=== PATIENT | male | born 1955 | race Caucasian/White ===

== ENCOUNTER → 2016-11-10 | Outpatient (CLI) | payer BC ==
[~2016-11-10] MED LIST: ASPI81TA28 PO; CRS/10 PO; HYDR-5688 PO; HYDR12.55 PO; LOSA1TAB PO; POTA1CAP53 PO; TAMS0.4C38 PO; VERA240C2 PO
--- NOTE | 2016-11-10 11:35 | DIAGNOSTIC IMAGING REPORT ---
SINUS CT CT DOSE: 635.90 mGy.cm HISTORY: Pain sinusitis TECHNIQUE: Multiaxial CT images of the paranasal sinuses were performed and reformatted in the coronal plane without the use of contrast. COMPARISON: None. FINDINGS: Diffuse mucosal thickening of all major sinuses. Near complete opacification right frontal air cells. Considerable mucosal thickening left frontal air cells. Complete opacification ethmoid air cells. Rather significant mucosal thickening of the maxillary sinuses bilaterally. The estimated units are soft tissue occluded bilaterally. There are moderate hypertrophic change of the nasal turbinates. Considerable mucosal thickening of the sphenoid air cells. The mastoid air cells are clear. The orbits are unremarkable. IMPRESSION: 1. Diffuse mucosal thickening throughout all major sinuses with near complete opacifications at multiple sites. 2. Soft tissue occlusion of the ostiomeatal units 3. Polypoid and/or hypertrophic change of the nasal turbinates. Electronically signed by: Lavelle Cunningham M.D. 11/10/2016 11:34 AM Dictated Date/Time: 11/10/2016 11:31 AM
== END | disposition home or self-care (01) ==
LOC: C.CTS 11:18
PROVIDERS: ATTEND Otolaryngology
DX: J32.9 Chronic sinusitis, unspecified (principal); M79.9 Soft tissue disorder, unspecified; J34.9 Unspecified disorder of nose and nasal sinuses

== ENCOUNTER → 2016-11-17 | Day surgery (SDC) | payer BC ==
[2016-11-11 08:11] VITALS: Ht 172.7 cm; Wt 93.2 kg
--- NOTE | 2016-11-15 09:36 | History and Physical: Surg Cnt ---
History & Physical Date Nov 15, 2016. Chief Complaint sinus infection History of Present Illness The patient is a 61 year old male with complaints of persistent sinusitis after 5 courses of antibiotics and steroids, x 6 months Additional History Hepatic Disease: No Endocrine Disorder: No Kidney Disease: No Hypertension: No Heart Disease: No Bleeding Tendencies: No Infectious Diseases: No Allergies Coded Allergies: No Known Allergies (Unverified , 11/11/16) Home Medications Scheduled Aspirin (Aspirin Ec), 81 MG PO QPM Hydrochlorothiazide (Hydrochlorothiazide), 1 TAB PO QPM Losartan Potassium (Cozaar), 25 MG PO QPM Potassium Chloride (Klor-Con Sprinkle), 1 TAB PO QPM Rosuvastatin Calcium (Crestor), 10 MG PO QPM Tamsulosin Hcl (Flomax), 0.4 MG PO QPM Verapamil Hcl (Verapamil Hcl Er), 1 CAP PO QAM Physical Examination Skin: warm/dry, no rash Eyes: normal inspection, EOMI, sclerae normal ENT: normal ENT inspection, pharynx normal Head: normocephalic, atraumatic Neck: supple, no adenopathy, trachea midline Respiratory/Chest: lungs clear, normal breath sounds, no respiratory distress Cardiovascular: regular rate, rhythm, no edema, no murmur Abdomen / GI: normal bowel sounds, non tender Back: normal inspection Extremities: normal inspection, normal range of motion Neurologic/Psych: no motor/sensory deficits, alert, normal reflexes, oriented x 3 Diagnosis chronic sinusitis, septal deviation Plan of Treatment septoplasty and endoscopic sinus surgery, explained procedure and risks
[~2016-11-17] VITALS: Ht 172.7 cm; Wt 93.2 kg
[~2016-11-17] MED LIST changes: +ATROPINE SULFATE 0.1 MG/ML 5ML SYR IV PRN; +CEFAZOLIN 2000 MG/60 ML D5W IV SCH; +DEXAMETHASONE SOD INJ 4 MG/ML VIAL ONE; +EpHEDrine SULFATE 50MG/5ML SYR ONE; +EpHEDrine SULFATE INJ 50 MG/ML AMP IV PRN; +EpINEphrine INJ 1MG/ML AMP 1 MG/ML AMP ONE; +FENTANYL CITRATE INJ 50 MCG/1 ML 2 ML VIAL ONE; +FLUMAZENIL 0.1 MG/1 ML 10 ML VIAL IV PRN; +GELATIN SPONGE 12-7MM ONE; +HYDROCODONE/ACETAMOPHEN 5/325MG TAB PO PRN; +LABETALOL HCL IV 5 MG/ML 20ML IV PRN; +LACTATED RINGER'S 1000ML 1,000 ML IV SCH; +LIDO 2%/EPINEPHRINE 1:100000 20 ML VIAL INFIL ONE; +LIDOCAINE 4% MPF SOAK 5 ML = 1 DOSE TOP ONE; +LIDOCAINE HCL 2% 2 ML VIAL (20MG/ML) ONE; +MIDAZOLAM HCL 1 MG/ML 2ML VIAL ONE; +NALOXONE HCL 0.4 MG/1 ML VIAL/CARP IV PRN; +NURSING VERBAL MED ORDER ONE; +ONDANSETRON INJ 2 MG/ML 2 ML VIAL IV PRN; +ONDANSETRON INJ 2 MG/ML 2 ML VIAL ONE; +OXYCODONE/ACETAMINOPHEN 5-325 TAB PO PRN; +PROMETHAZINE HCL INJ 12.5 MG in SODIUM CHLORIDE 0.9% 50ML 50 ML IV PRN; +PROPOFOL IV EMULSION 10 MG/ML 20 ML VIAL IV ONE; +SODIUM CHLORIDE 0.9% 1000ML 1,000 ML IV SCH; +SUCCINYLCHOLINE CHLORIDE 20 MG/ML 10 ML VIAL IV ONE
--- NOTE | 2016-11-17 11:08 | History & Physical Bridge Note ---
H&P Re-Evaluation Bridge Note: I have examined the patient, reviewed the History & Physical and in the interval since the performance of the History & Physical I have noted the following changes of clinical significance: No changes noted
--- NOTE | 2016-11-17 11:29 | History & Physical Bridge Note ---
H&P Re-Evaluation Bridge Note: I have examined the patient, reviewed the History & Physical and in the interval since the performance of the History & Physical I have noted the following changes of clinical significance: I will clean wax from right ear
[2016-11-17] MEDS: BACITRACIN OINT 15 GM TUBE ONE ×3 (12:13→13:25)
--- NOTE | 2016-11-17 14:01 | [facility] Operative Report ---
Operative Report Operative Date Nov 17, 2016. Pre-Operative Diagnosis Chronic Sinusitis, Septal Deviation, Cerumen of right ear Post-Operative Diagnosis same as preop Procedure(s) Performed Right and left frontal sinusotomy right and left sphenoidotomy right and left total ethmoidectomy right and left maxillary sinus antrostomy with removal of multiple polyps Surgeon Dr. Vences [employer] Sales Representative Surgeon(s) none Estimated Blood Loss 150ML Findings Severe polyposis Specimens A: Polyp right sphenoid Drains none Anesthesia Gen. endotracheal Complication(s) None Disposition Recovery Room / PACU Implants Propel implants, 2 contour and 2 regular Indications 61-year-old male with long history of of chronic sinusitis and significant nasal polyposis with pansinusitis on CT scan Description of Procedure Procedure the patient was brought to the operating room placed in the supine position general endotracheal anesthesia was induced he was prepped and draped in the usual sterile manner for endoscopic sinus surgery. The brain lab device was calibrated and used for the entire procedure. The right sphenoid was cannulated with the guidewire with HiperScan computer guidance and dilated to used and 6 mm balloon as well as the left sphenoid sinus. The right maxillary sinus was cannulated with the guidewire and dilated using the 6 mm balloon as well as the left maxillary sinus. The left nasal frontal duct was cannulated with a guidewire with AcunuLab computer guidance and dilated using the 6 mm balloon the guidewire was left in place as a marker. Frontal sinusotomy was performed using the shaver couple with the brain lab device shaving up the Agger nasi cell removing the anterior wall and the posterior wall and agonizing ECL finding the cell to be filled with polyps. The nasal frontal duct was started opened by following the guidewire superiorly removing the posterior wall of the AggerNasi cell which is the anterior wall of the nasal frontal duct. The mucosa in the nasal frontal duct was left intact. At this point total ethmoidectomy was performed opening up the bulla ethmoidalis then going through the ground lamella into the posterior ethmoid air cell. The posterior most ethmoid air cell was identified with the shaver couple with the brain lab device. The skull base and lamina papyracea were identified and followed anteriorly exonerating all the posterior and then all the anterior ethmoid air cells up to the previously dilated nasal frontal duct which still had the guidewire in place. The sphenoidotomy was opened by removing polypoid mucosa at the inferior border of the superior turbinate and also at the anterior face of the sphenoid. The maxillary antrostomy was opened using the seeker to find the dilated opening and then removing polypoid tissue from around the maxillary sinus ostia using the shaver opening this to a natural maxillary ostia. The right frontal sinusotomy sphenoidotomy total ethmoidectomy and maxillary sinus antrostomy was performed in a similar manner again removing polyposis that filled all the sinuses. Contours stents were placed in the nasal frontal duct and regular propel stents were placed in the ethmoid cavity. The patient tolerated. The procedure well was taken to the recovery area in satisfactory condition I attest to the content of the Intraoperative Record and any orders documented therein. Any exceptions are noted below.
[2016-11-17] MEDS: FENTANYL CITRATE INJ 50 MCG/1 ML 2 ML VIAL IV PRN ×4 (14:02→14:26)
[2016-11-17 14:40] VITALS: TEMP 36.6
--- NOTE | 2016-11-17 15:30 | Discharge Instructions-SurgCtr ---
Discharge Instructions Date of Service Nov 17, 2016. Visit Reason for Visit: Chronic Sinusitis, Septal Deviation Discharge Discharge Diagnosis / Problem: SHAHEEN Discharge Goals Goal(s): Improve function, Improve disease control Activity Recommendations Activity Limitations: resume your previous activity Anesthesia . Post Anesthesia Instructions: If you have had General Anesthesia or IV Sedation: * Do not drive today. * Resume driving when surgeon permits. * Do not make important decisions or sign legal documents today. * Call surgeon for: 1. Temperature elevations greater than 101 degrees F. 2. Uncontrollable pain. 3. Excessive bleeding. 4. Persistent nausea and vomiting. 5. Medication intolerance (nausea, vomiting or rash). * For nausea and vomiting use only clear liquids such as: tea, soda, bouillon until nausea subsides, then gradually increase diet as tolerated. * If you have any concerns or questions, call your surgeon's office. If physician is unavailable and it is an emergency, call 911 or go to the nearest emergency room. . Instructions / Follow-Up Instructions / Follow-Up ACTIVITY RECOMMENDATIONS: * Being up and around is good, but no strenuous activity, heavy lifting or physical exertion for one week. * Keep your head elevated 30 degrees when lying down or sleeping. * Do not blow your nose for 48 hours, sniff back instead. * Avoid hot showers. OVER THE COUNTER MEDICATIONS: * You may use Tylenol * Avoid aspirin or aspirin containing products, e.g. as they may increase bleeding. SPECIAL CARE INSTRUCTIONS: * Expect to have bloody drainage from your nose and/or down your throat for one to three days. Change drip pad as needed. * Begin irrigating your nose with saline solution today, at least six to ten times per day and sniff back to help remove old clots or crust. * You may experience nasal and facial congestion, pain and pressure, this is normal. * Please call with any significant and/or progressive pain, redness, swelling around the eyes, visual changes, fever of 101.5 degrees F, active bleeding or any problems or concerns. * If active bleeding occurs, spray the nose three times at one minute intervals with Afrin spray and call or cell phone: . If unable to reach the doctor, go to the nearest Emergency Department. Special Diet: * Avoid extremely hot fluids. FOLLOW UP VISIT: Follow-up Visit with Dr. Vences If not already scheduled, please call to schedule. Diet Recommendations Home Diet: no limitations Procedures Procedures Performed: Right and left frontal sinusotomy right and left sphenoidotomy right and left total ethmoidectomy right and left maxillary sinus antrostomy with removal of multiple polyps Pending Studies Studies pending at discharge: no Medical Emergencies . Who to Call and When: Medical Emergencies: If at any time you feel your situation is an emergency, please call 911 immediately. . Non-Emergent Contact Non-Emergency issues call your: Primary Care Provider . . "Provider Documentation" section prepared by Daniella Vences. . [place] Drug Monitoring Program Search Results: no issues identified
[2016-11-17 15:31] VITALS: BP 144/89; PULSE 85; O2SAT 97
--- NOTE | 2016-11-17 15:37 | Anesthesia Progress Nt - [facility] ---
Anesthesia Post Op Note Date & Time Nov 17, 2016 at 15:37 Vital Signs Pain Intensity: 2 Vital Signs Past 12 Hours Date Time Temp Pulse Resp B/P (MAP) Pulse Ox O2 Delivery O2 Flow Rate FiO2 11/17/16 15:31 85 16 144/89 (107) 97 Room Air 11/17/16 15:09 85 16 150/87 (108) 96 Room Air 11/17/16 14:40 36.6 81 16 146/90 (108) 95 Room Air 11/17/16 14:32 81 8 11/17/16 14:32 81 8 95 11/17/16 14:31 147/89 11/17/16 14:31 36.4 81 12 147/89 95 Room Air 11/17/16 14:27 81 7 11/17/16 14:27 79 7 94 11/17/16 14:26 141/88 11/17/16 14:22 80 12 11/17/16 14:22 79 12 95 11/17/16 14:21 138/90 11/17/16 14:17 87 7 11/17/16 14:17 87 7 96 11/17/16 14:16 137/93 11/17/16 14:12 86 10 95 11/17/16 14:12 85 10 11/17/16 14:11 146/90 11/17/16 14:07 83 6 98 11/17/16 14:07 83 6 11/17/16 14:06 135/87 11/17/16 14:02 83 1 98 11/17/16 14:02 84 1 11/17/16 14:01 148/87 11/17/16 13:57 84 0 11/17/16 13:57 84 0 99 11/17/16 13:56 140/86 11/17/16 13:52 84 13 11/17/16 13:52 84 13 98 11/17/16 13:51 139/95 11/17/16 13:48 140/85 11/17/16 13:47 85 11/17/16 13:47 85 95 11/17/16 13:47 36.4 86 12 140/85 96 Humidified Oxygen 6 Mask 11/17/16 09:16 36.4 76 16 124/84 (97) 95 Room Air Notes Mental Status: alert / awake / arousable, participated in evaluation Pt Amnestic to Procedure: Yes Nausea / Vomiting: adequately controlled Pain: adequately controlled Airway Patency, RR, SpO2: stable & adequate BP & HR: stable & adequate Hydration State: stable & adequate Anesthetic Complications: no major complications apparent
== END | disposition home or self-care (01) ==
LOC: X.SURG 08:39
PROVIDERS: ATTEND Otolaryngology
DX: J34.2 Deviated nasal septum (principal); J32.9 Chronic sinusitis, unspecified; J33.8 Other polyp of sinus; H61.21 Impacted cerumen, right ear; Z79.82 Long term (current) use of aspirin; Z79.899 Other long term (current) drug therapy

== ENCOUNTER → 2017-05-11 | Day surgery (SDC) | payer BC ==
[2017-05-10 12:10] VITALS: Ht 172.7 cm; Wt 93.2 kg
--- NOTE | 2017-05-10 15:47 | History and Physical: Surg Cnt ---
History & Physical Date May 10, 2017. Chief Complaint sinus infection and headaches History of Present Illness The patient is a 61 year old male with complaints of chronic sinusitis and polyposis, recurrent after surgery in October Additional History Hepatic Disease: No Endocrine Disorder: No Kidney Disease: No Hypertension: No Heart Disease: No Bleeding Tendencies: No Infectious Diseases: No Allergies Coded Allergies: Captopril (Verified Allergy, Unknown, "LIP SWELLING", 05/10/17) Home Medications Scheduled Amoxicillin (Amoxil), 500 MG PO BID Aspirin (Aspirin Ec), 81 MG PO QPM Hctz/Losartan (Hyzaar 12.5MG/50MG), Unknown Dose PO QPM Potassium Chloride (Klor-Con Sprinkle), 10 MG PO QPM Rosuvastatin Calcium (Crestor), 10 MG PO QPM Tamsulosin Hcl (Flomax), 0.4 MG PO QPM Verapamil Hcl (Verapamil Hcl Er), 240 MG PO QAM Physical Examination Skin: warm/dry, no rash Eyes: normal inspection, EOMI, sclerae normal ENT: normal ENT inspection, pharynx normal Head: normocephalic, atraumatic Neck: supple, no adenopathy, trachea midline Respiratory/Chest: lungs clear, normal breath sounds, no respiratory distress Cardiovascular: regular rate, rhythm, no edema, no murmur Abdomen / GI: normal bowel sounds, non tender Back: normal inspection Extremities: normal inspection, normal range of motion Neurologic/Psych: no motor/sensory deficits, alert, normal reflexes, oriented x 3 Diagnosis chronic sinusitis and polyposis Plan of Treatment endoscopic sinus surgery
[~2017-05-11] VITALS: Ht 172.7 cm; Wt 93.2 kg
[~2017-05-11] MED LIST changes: +AMOX500C3 PO; +CEFAZOLIN 1000MG IV PUSH 5 ML IV SCH; -CEFAZOLIN 2000 MG/60 ML D5W IV SCH; -EpHEDrine SULFATE 50MG/5ML SYR ONE; +EpHEDrine SULFATE INJ 50 MG/ML AMP ONE; +FENTANYL CITRATE INJ 50 MCG/1 ML 2 ML VIAL IV PRN; -FLUMAZENIL 0.1 MG/1 ML 10 ML VIAL IV PRN; -GELATIN SPONGE 12-7MM ONE; +GLYCOPYRROLATE INJ 0.2 MG/ML VIAL ONE; -HYDR-5688 PO; -HYDR12.55 PO; -HYDROCODONE/ACETAMOPHEN 5/325MG TAB PO PRN; +HYZ/50125 PO; -LABETALOL HCL IV 5 MG/ML 20ML IV PRN; -LOSA1TAB PO; -NALOXONE HCL 0.4 MG/1 ML VIAL/CARP IV PRN; +NEOSTIGMINE METHYLSULFATE 5 MG/5 ML SYR ONE; -NURSING VERBAL MED ORDER ONE; +OXYC-57 PO; +PHENYLEPHRINE HCL INJ 10 MG/ML VIAL ONE; -PROMETHAZINE HCL INJ 12.5 MG in SODIUM CHLORIDE 0.9% 50ML 50 ML IV PRN; +SODIUM CHLORIDE 0.9% INJ 10 ML VIAL ONE; -SUCCINYLCHOLINE CHLORIDE 20 MG/ML 10 ML VIAL IV ONE
--- NOTE | 2017-05-11 11:34 | [facility] Post Operative Brief Note ---
Immediate Operative Summary Operative Date May 11, 2017. Pre-Operative Diagnosis Chronic Sinusitis and Polyposis Post-Operative Diagnosis Same Procedure(s) Performed Endoscopic Sinus Surgery with [employer] Navigation, Right and Left Frontal Sinus , Maxillary and Sphenoidectomies Surgeon Dr. Vences Rn Med Surg Surgeon(s) None Estimated Blood Loss 50 mL Findings polyps Specimens A. Left Maxillary Polyp Complication(s) None Disposition Recovery Room / PACU
--- NOTE | 2017-05-11 11:37 | Discharge Instructions-SurgCtr ---
Discharge Instructions Date of Service May 11, 2017. Visit Reason for Visit: Chronic Sinusitis, Polyposis Discharge Discharge Diagnosis / Problem: same Discharge Goals Goal(s): Decrease discomfort, Improve function Activity Recommendations Activity Limitations: per Instructions/Follow-up section Anesthesia . Post Anesthesia Instructions: If you have had General Anesthesia or IV Sedation: * Do not drive today. * Resume driving when surgeon permits. * Do not make important decisions or sign legal documents today. * Call surgeon for: 1. Temperature elevations greater than 101 degrees F. 2. Uncontrollable pain. 3. Excessive bleeding. 4. Persistent nausea and vomiting. 5. Medication intolerance (nausea, vomiting or rash). * For nausea and vomiting use only clear liquids such as: tea, soda, bouillon until nausea subsides, then gradually increase diet as tolerated. * If you have any concerns or questions, call your surgeon's office. If physician is unavailable and it is an emergency, call 911 or go to the nearest emergency room. . Instructions / Follow-Up Instructions / Follow-Up ACTIVITY RECOMMENDATIONS: * Being up and around is good, but no strenuous activity, heavy lifting or physical exertion for one week. * Keep your head elevated 30 degrees when lying down or sleeping. * Do not blow your nose for 48 hours, sniff back instead. * Avoid hot showers. OVER THE COUNTER MEDICATIONS: * You may use Tylenol * Avoid aspirin or aspirin containing products, e.g. as they may increase bleeding. SPECIAL CARE INSTRUCTIONS: * Expect to have bloody drainage from your nose and/or down your throat for one to three days. Change drip pad as needed. * Begin irrigating your nose with saline solution today, at least six to ten times per day and sniff back to help remove old clots or crust. * You may experience nasal and facial congestion, pain and pressure, this is normal. * Please call with any significant and/or progressive pain, redness, swelling around the eyes, visual changes, fever of 101.5 degrees F, active bleeding or any problems or concerns. * If active bleeding occurs, spray the nose three times at one minute intervals with Afrin spray and call or cell phone: . If unable to reach the doctor, go to the nearest Emergency Department. Special Diet: * Avoid extremely hot fluids. FOLLOW UP VISIT: Follow-up Visit with Dr. Vences If not already scheduled, please call to schedule. Diet Recommendations Home Diet: no limitations Procedures Procedures Performed: Endoscopic Sinus Surgery with BrainLab Navigation, Right and Left Frontal Sinus , Maxillary and Sphenoidectomies Pending Studies Studies pending at discharge: no Medical Emergencies . Who to Call and When: Medical Emergencies: If at any time you feel your situation is an emergency, please call 911 immediately. . Non-Emergent Contact Non-Emergency issues call your: Primary Care Provider . . "Provider Documentation" section prepared by Daniella Vences. . [place] Drug Monitoring Program Search Results: no issues identified
[2017-05-11 12:13] VITALS: TEMP 36.7
[2017-05-11 12:41] VITALS: BP 120/78; PULSE 69; O2SAT 95
--- NOTE | 2017-05-11 12:51 | Anesthesiology Progress Note ---
Anesthesia Post Op Note Date & Time May 11, 2017 at 12:51 Vital Signs Pain Intensity: 0 Vital Signs Past 12 Hours Date Time Temp Pulse Resp B/P (MAP) Pulse Ox O2 Delivery O2 Flow Rate FiO2 05/11/17 12:41 69 16 120/78 (92) 95 Room Air 05/11/17 12:13 36.7 75 16 113/73 (86) 95 Room Air 05/11/17 12:03 76 12 05/11/17 12:03 76 12 96 05/11/17 12:02 36.7 76 16 111/71 96 Room Air 05/11/17 12:01 111/71 05/11/17 11:58 74 13 05/11/17 11:58 74 13 99 05/11/17 11:56 115/66 05/11/17 11:53 73 12 99 05/11/17 11:53 73 12 05/11/17 11:51 118/70 05/11/17 11:48 75 17 99 05/11/17 11:48 75 17 05/11/17 11:46 120/70 05/11/17 11:43 74 8 99 05/11/17 11:43 74 8 05/11/17 11:41 116/67 05/11/17 11:39 116/70 05/11/17 11:38 36.2 80 12 116/70 98 Humidified Oxygen 6 Mask 05/11/17 08:14 36.5 87 16 134/88 (103) 96 Room Air Notes Mental Status: alert / awake / arousable, participated in evaluation Pt Amnestic to Procedure: Yes Nausea / Vomiting: adequately controlled Pain: adequately controlled Airway Patency, RR, SpO2: stable & adequate BP & HR: stable & adequate Hydration State: stable & adequate Anesthetic Complications: no major complications apparent
--- NOTE | 2017-05-11 13:06 | OPERATIVE REPORT ---
DATE OF OPERATION: 05/11/2017 PREOPERATIVE DIAGNOSES: Chronic sinusitis and polyposis. POSTOPERATIVE DIAGNOSES: Same. PROCEDURE: Right and left frontal sinusotomy, right and left maxillary sinus antrostomy and then right and left sphenoidotomy. SURGEON: Dr. Vences. ANESTHESIA: General. COMPLICATIONS: None. BLOOD LOSS: 50 mL. INDICATIONS FOR PROCEDURE: A 61-year-old gentleman with significant severe polyposis surgery by [place] 6 months ago, but polyps have recurred already blocking the frontal, sphenoid and maxillary sinuses. DESCRIPTION OF PROCEDURE: The patient brought to the Operating Room, placed in supine position. General endotracheal anesthesia was induced, prepped, draped in usual sterile manner. Nose decongested using the cottonoids with topical solution of 4 mL of 4% Xylocaine mixed with 1 mL of Epinephrine. Injection of 2% Xylocaine 1:1000 strength epinephrine was also used. RepRegen device calibrated and used for the entire procedure. The right sphenoid cannulated with a guidewire, dilated using the 6 mm balloon as was the left sphenoid sinus. These right maxillary and left maxillary sinuses had some adhesions and polyps, but appeared to be open. The left nasal fundus was cannulated with the guidewire with BrainLAB computer guidance and dilated using the 6 mm balloon. There were multiple polyps. The guidewire was left in place as a marker. Frontal sinusotomy was performed using the shaver, coupled with the ProximexLab device removing the adhesion that recreated the anterior wall of the agger nasi cell, opening up the agger nasi cell and opening up the nasofrontal duct by removing polypoid mucosa and polyps anterior to the guidewire leaving the mucosa in the nasofrontal duct intact. At this point, residual polyps over the maxillary sinus was shaved out down using the shaver and the residual polyps at the anterior face of the sphenoid at the inferior border of the superior turbinate was removed using the shaver opening up the sphenoid. The right frontal sinusotomy, sphenoidotomy, and maxillary sinus antrostomy performed in similar manner. The contour stents were placed into the nasofrontal duct and the Propel stents were placed in the middle meatus into the sphenoid ostia. The patient tolerated the procedure well and was taken to recovery area in satisfactory condition. I attest to the content of the Intraoperative Record and any orders documented therein. Any exception s are noted below.
== END | disposition home or self-care (01) ==
LOC: X.SURG 07:58
PROVIDERS: ATTEND Otolaryngology
DX: J32.9 Chronic sinusitis, unspecified (principal); J33.8 Other polyp of sinus; I10 Essential (primary) hypertension; Z90.49 Acquired absence of other specified parts of digestive tract